=== PATIENT | male | born 1955 | race Caucasian/White ===

== ENCOUNTER 2017-01-26 00:20 | Observation (INO) | payer OTHER ==
[~2017-01-26] VITALS: Ht 172.7 cm; Wt 79.4 kg
[~2017-01-26 00:20] MED LIST: ALL DAY ALLERGY10 M3 PO; ASPIRIN81 M4 PO; AUGMENTIN 875-1 EACH PO; CIPRO 500MG TA500 MG IV; CIPRO 500MG TA500 MG PO; CLINDAMYCIN HC150 M1 PO; DULOXETINE HCL60 MG PO; DUONEB 3 MG/3 ML3 ML INH/SOL; ESCITALOPRAM10 MG PO; FLUTICASONE PRO16 GM NASB; FUROSEMIDE40 M1 PO; IPRATROPIUM BROM3 ML PO; PANTOPRAZOLE SO20 M1 PO; PERIOGARD473 ML PO; PREDNISONE10 MG PO; RX CHOICE FE15 MG/ML PO; SALINE NASAL SP30 ML NASB; SENNA8.6 M3 PO; TRAZODONE HCL100 M1 PO; ULTRAM50 M1 PO
--- NOTE | 2017-01-26 00:27 | ED GENERAL ADULT ---
See Addendum History of Present Illness General Chief Complaint: General Adult Stated Complaint: BIBA, DIFF SWALLOWING Source: patient, EMS, W10 Exam Limitations: clinical condition Vital Signs & Intake/Output Vital Signs & Intake/Output Vital Signs Date Time Temp Pulse Resp B/P B/P Pulse O2 O2 Flow FiO2 Mean Ox Delivery Rate 01/26 0022 97.3 79 20 109/53 92 Room Air Allergies Coded Allergies: tuberculin, purified protein deriva (UNKNOWN 04/27/16) Reconcile Medications Amoxicillin/Potassium Clav (Augmentin 875-125 Tablet) 875 MG-125 MG TABLET 1 TAB PO BID PNA Aspirin (Aspirin*) 81 MG TAB.CHEW 2 TAB PO DAILY heart (Reported) Cetirizine HCl (All Day Allergy) 10 MG CAPSULE 1 TAB PO AT BEDTIME ALLERGY ( Reported) Chlorhexidine Gluconate (Periogard) 0.12 % MOUTHWASH 15 ML PO BID MOUTHWASH ( Reported) Duloxetine HCl 60 MG CAPSULE.DR 1 CAP PO DAILY mental health (Reported) Fluticasone Propionate 50 MCG/ACTUATION SPRAY.SUSP 2 SPRAY NASB DAILY congestion (Reported) Furosemide 40 MG TABLET 1 TAB PO DAILY EDEMA (Reported) Pantoprazole Sodium 20 MG TABLET.DR 1 TAB PO DAILY gerd (Reported) Sennosides (Senna) 8.6 MG TABLET 2 TAB PO AT BEDTIME CONSTIPATION (Reported) Sodium Chloride (Saline Nasal [place]) 0.65 % SPRAY 1-2 SPRAY NASB TID mositure (Reported) Tramadol HCl (Ultram) 50 MG TABLET 1 TAB PO TIDPRN pain (Reported) Trazodone HCl 100 MG TABLET 2 TAB PO QPM bedtime (Reported) Triage Nurses Notes Reviewed? yes Onset: Gradual Duration: day(s): Timing: recent history Injury Environment: home Severity: mild Associated Symptoms: increased sputum. HPI: 61-year-old gentleman, history of head and neck cancer in remission, with a tracheostomy, presents with difficulty eating for the past 2 days. He shares that for the past 2 days it has been difficult for him to eat due to discomfort. He has had no nausea vomiting diarrhea chest pain or shortness of breath. He is otherwise well. Past History Travel History Traveled to [place] past 21 day No Medical History Any Pertinent Medical History? 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 No Review of Systems Review of Systems Constitutional: Reports: no symptoms. EENTM: Reports: no symptoms. Respiratory: Reports: no symptoms. Cardiovascular: Reports: no symptoms. GI: Reports: no symptoms. Genitourinary: Reports: no symptoms. Musculoskeletal: Reports: no symptoms. Skin: Reports: no symptoms. Neurological/Psychological: Reports: no symptoms. Hematologic/Endocrine: Reports: no symptoms. Immunologic/Allergic: Reports: no symptoms. All Other Systems: Reviewed and Negative Physical Exam Physical Exam General Appearance: well developed/nourished, no apparent distress Head: atraumatic, normal appearance Eyes: Bilateral: normal appearance, PERRL, EOMI. Ears, Nose, Throat: trach in place, no significant secretions. no stridor Neck: no stridor Respiratory: minimal rhonchi Cardiovascular: regular rate/rhythm Gastrointestinal: normal bowel sounds, soft, non-tender Back: normal inspection, normal range of motion Extremities: normal inspection, normal capillary refill, normal range of motion, no edema Neurologic/Psych: no motor/sensory deficits, awake, alert Skin: intact Core Measures ACS in differential dx? No CVA/TIA Diagnosis: No Severe Sepsis Present: No Septic Shock Present: No Progress Differential Diagnoses I considered the following diagnoses in my evaluation of the patient: dehydration, gerd, gastritis vs other. Plan of Care: Orders Procedure Date/time Status TROPONIN LEVEL 01/27 28 Complete COMPREHENSIVE METABOLIC PANEL 01/27 28 Complete CBC WITHOUT DIFFERENTIAL 01/27 28 Complete Laboratory Tests 01/26/17 0037: Anion Gap 13, Estimated GFR > 60, BUN/Creatinine Ratio 18.6, Glucose 94, Calcium 9.7, Total Bilirubin 1.1, AST 16 L, ALT 26, Alkaline Phosphatase 66, Troponin I < 0.01, Total Protein 6.9, Albumin 4.6, Globulin 2.3, Albumin/Globulin Ratio 2.0 , CBC w Diff NO MAN DIFF REQ, RBC 4.30 L, MCV 88.2, MCH 29.5, RDW 13.9, MPV 7.6 , Gran % 88.0 H, Lymphocytes % 4.2 L, Monocytes % 7.1, Eosinophils % 0.4, Basophils % 0.3, Absolute Granulocytes 8.8 H, Absolute Lymphocytes 0.4 L, Absolute Monocytes 0.7 H, Absolute Eosinophils 0, Absolute Basophils 0, PUBS MCHC 33.4 Diagnostic Imaging: Viewed by Me: Radiology Read. Discussed w/RAD: Radiology Read. CXR Impression: OPACITIES SUGGESTING EDEMA... FULL REPORT BELOW. Initial ED EKG: none Comments: 04/29/2016... CARDIAC ECHO WITH NORMAL EF. PATIENT: GAYLA TIDWELL PRESENT AGE: 61 PATIENT ACCOUNT NO: [id number] : 55 LOCATION: [facility] ORDERING PHYSICIAN: LAURA CARROLL MD SERVICE DATE: 01/26/17 EXAM TYPE: RAD - XRY-PORTABLE CHEST XRAY EXAMINATION: XR PORTABLE CHEST CLINICAL INFORMATION: Dyspnea COMPARISON: 04/27/2016 TECHNIQUE: Portable frontal view of the chest was obtained. FINDINGS: Tracheostomy tube is present with tip approximately 5 cm above the gaston. Lung volumes are symmetric. There are regions of opacity at the bilateral lung bases, decreased compared to prior. Fullness is also noted in the hilar regions bilaterally. No pneumothorax is seen. No definite pleural effusion. Cardiac size is at the upper limits of normal. 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 There are chronic appearing deformities in the bilateral shoulders. No acute fracture is seen. IMPRESSION: Bibasilar opacities and perihilar fullness, suggesting edema. DICTATED BY: EDI NOLAND MD DATE/TIME DICTATED:01/26/1748 REAL ESTATE SITE ANALYST:ZAYDA DATE/TIME TRANSCRIBED:01/26/1748 CONFIDENTIAL, DO NOT COPY WITHOUT APPROPRIATE AUTHORIZATION. <Electronically signed in Other Vendor System> SIGNED BY: EDI NOLAND MD 01/26/17 0055 Departure Departure Disposition: HOME OR SELF CARE Condition: Stable Clinical Impression Primary Impression: Difficulty swallowing Secondary Impressions: Bronchitis, Diastolic CHF, Dyspnea Referrals: KATHLEEN CROWLEY,MAGDA Dasilva (PCP/Family) Departure Forms: Customer Survey General Discharge Information Comments 01/26/17, 1:59AM.... Pt resting comfortably... 02 sat 93-4% ... cxr suggests "pulmonary edema" but upon review of prior ct scan and cxrs, it is more consistent with pneumonia. Echo from apr 2016 shows normal ef. Pt likely has bronchitis/ early pneumonia with mild component of volume overload. Pt safe for discharge to [facility] and will return if his symptoms worsen... will give 2 days of lasix bid, then go to qday (pt's standing dose). Pt also to receive 7 days of levaquin. Critical Care Note Critical Care Note Critical Care Time: non-applicable
--- NOTE | 2017-01-26 00:28 | NUR ---
PT BIBA FROM NURSING FACILITY WITH COMPLAINTS OF DIFFICULTY SWALLOWING X2 DAYS. PT WAS RECENTLY SEEN BY EARS, NOSE AND THROAT, BUT RESULTS ARE STILL PENDING PER EMS. PT ARRIVES ALERT AND ORIENTED. TRACHE NOTED. DR CARROLL AT BEDSIDE.
--- NOTE | 2017-01-26 00:39 | NUR ---
[facility]
--- NOTE | 2017-01-26 00:55 | RADIOLOGY REPORT ---
EXAMINATION: XR PORTABLE CHEST CLINICAL INFORMATION: Dyspnea COMPARISON: 04/27/2016 TECHNIQUE: Portable frontal view of the chest was obtained. FINDINGS: Tracheostomy tube is present with tip approximately 5 cm above the gaston. Lung volumes are symmetric. There are regions of opacity at the bilateral lung bases, decreased compared to prior. Fullness is also noted in the hilar regions bilaterally. No pneumothorax is seen. No definite pleural effusion. Cardiac size is at the upper limits of normal. 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 There are chronic appearing deformities in the bilateral shoulders. No acute fracture is seen. IMPRESSION: Bibasilar opacities and perihilar fullness, suggesting edema.
[2017-01-26 01:03] LABS: ABSOLUTE BASOPHIL COUNT 0 /CUMM (0.0-0.2); ABSOLUTE EOSINOPHIL COUNT 0 /CUMM (0.0-0.7); ABSOLUTE GRANULOCYTE CT 8.8 /CUMM (1.4-6.5); ABSOLUTE LYMPH COUNT 0.4 /CUMM (1.2-3.4); ABSOLUTE MONOCYTE COUNT 0.7 /CUMM (0.10-0.60); BASOPHIL % 0.3 % (0.0-2.0); EOSINOPHIL % 0.4 % (0-5); MEAN CORPUSCULAR HGB 29.5 PG (27.0-31.0); MEAN CORPUSCULAR HGB CONC 33.4 G/DL (33.0-37.0); MEAN CORPUSCULAR VOLUME 88.2 FL (80.0-94.0); MEAN PLATELET VOLUME 7.6 FL (7.4-10.4); PLATELET COUNT 229 /CUMM (130-400); RBC DISTRIBUTION WIDTH 13.9 % (11.5-14.5)
--- NOTE | 2017-01-26 01:59 | NUR ---
DR CARROLL AT BEDSIDE TO EXPLAIN RESULTS
--- NOTE | 2017-01-26 02:30 | NUR ---
PT AWAITING [facility].
--- NOTE | 2017-01-26 03:46 | NUR ---
[facility] HERE FOR TRANSPORT. PT BECOMING AGITATED AND STATES THAT HE DOES NOT WANT TO LEAVE. DR CARROLL AT BEDSIDE TO FURTHER ADDRESS PATIENT'S CONCERNS. PT STATES HE HAS NOT EATEN FOOD IN TWO DAYS BECAUSE IT IS TOO PAINFUL. DR CARROLL CONVERSING WITH HOSPITALIST ABOUT POSSIBLE ADMISSION.
--- NOTE | 2017-01-26 03:51 | NUR ---
PT AMBULATORY TO AND FROM RESTROOM WITH EVEN AND STEADY GAIT
[2017-01-26] MEDS ORDERED: DULOXETINE HCL30 MG PO (03:59)
[2017-01-26] MEDS ORDERED: IRON325 M2 (04:05)
--- NOTE | 2017-01-26 04:22 | NUR ---
HOUSESTAFF AT BEDSIDE FOR EVAL.
--- NOTE | 2017-01-26 04:46 | History & Physical ---
BERNIE CROWLEY,ERIC 01/26/17 0446: General Information and HPI MD Statement: I have seen and personally examined GAYLA TIDWELL and documented this H&P. The patient is a 61 year old M who presented with a patient stated chief complaint of [difficulty swallowing]. Exam Limitations: difficulty understanding the pt who is s/p tracheostomy, and speaks with an ectolarynx, pt was uncooperative during the history and physical exam History of Present Illness: pt is a 61 yo m with a pmh significant for diastolic CHF, subdural hematoma, cancer of head and neck, alcohol abuse, pancreatitis, ARDS, s/p tracheostomy, esophageal strictures. Brought into the ED from [facility] complaining of a 2 day history of an inability to swallowing. Pt is very difficult to understand when using his ectolarynx, and refused to use a pen and paper to communicate, as a result the history was taken via yes or no questions and he became uncooperative quickly. He denies odynophagia, cough, chest pain, fever, chills, SOB, nausea, or vomiting. 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 Cardiovascular: Denies: chest pain. Respiratory: Denies: cough, hemoptysis, short of breath. GI: Denies: abdominal pain, nausea, vomiting. Exam & Diagnostic Data Last 24 Hrs of Vital Signs/I&O Vital Signs Date Time Temp Pulse Resp B/P B/P Pulse O2 O2 Flow FiO2 Mean Ox Delivery Rate 01/26 0603 97.7 62 18 112/57 94 Room Air 01/26 0340 97.2 67 18 106/66 97 Room Air 01/26 0022 97.3 79 20 109/53 92 Room Air Intake & Output 01/26 0800 01/26 0000 01/25 1600 Intake Total 0 Output Total Balance 0 Intake, Oral 0 Patient 175 lb Weight Weight Estimated Measurement Method Physical Exam General Appearance Alert, No Acute Distress, unable to assess orientation due to inability to understand pt, pt was uncooperative throughout most of the exam Skin No Rashes, No Breakdown, pt has old appearing ecchymoses on knees b/l, and his L arm Skin Temp/Moisture Exam: Warm/Dry Sepsis Skin Exam (color): Normal for Ethnicity HEENT Atraumatic, PERRLA, EOMI, Mucous Membr. moist/pink, poor dentition, pt failed a bedside swallow evaluation. When given 3 oz of water to drink he would take small sips though a straw, attempt to swallow, and then spit the water back into the cup Neck Supple, No JVD, tracheostomy in place, no significant drainage present Lymphatic Cervical nl Cardiovascular Regular Rate, Normal S1, Normal S2, No Murmurs Lungs Clear to Auscultation, Normal Air Movement Abdomen Normal Bowel Sounds, Soft, No Tenderness, No Hepatospenomegaly, No Masses Neurological Cranial Nerves 3-12 NL Extremities No Cyanosis, No Edema, Normal Pulses Vascular Normal Pulses, Pulses Symmetrical Sepsis Peripheral Pulse Location: Dorsalis Pedis Sepsis Peripheral Pulse Exam: Normal Sepsis Cap Refill Exam: <2 Sec Diagnostic Data CXR Results IMPRESSION: Bibasilar opacities and perihilar fullness, suggesting edema. Assessment/Plan Assessment: pt is a 61 yo m with a pmh significant for diastolic CHF, subdural hematoma, cancer of head and neck, alcohol abuse, pancreatitis, ARDS, s/p tracheostomy, esophageal strictures. Pt c/o 2 day history difficulty swallowing. Pt is very difficult to understand when using his ectolarynx, and refused to use a pen and paper to communicate, as a result the history was taken via yes or no questions and he became uncooperative quickly. Of note, the ED doctor felt the pt was elligable for discharge but the pt refused to leave via ambulance back to his nursing facility. #dysphagia - Observation on the general medicine floor - NPO - formal swallow evaluation ordered - nutrition consult needed after swallow evaluation - aspiration precautions - serial vital monitoring - GI consultation - IVF #DVT prophylaxis - Lovenox #Code status - Full code As Ranked By This Provider Problem List: 1. Difficulty swallowing Core Measures/Miscellaneous Acute Coronary Syndrome ACS Diagnosis: No Cerebrovascular Accident CVA/TIA Diagnosis: No Congestive Heart Failure CHF Diagnosis: Yes Date of most recent Echo: 04/29/16 Last Known EF %: 60 NICHOLAS/ARB for EF <40%: Yes VTE (View Protocol) VTE Risk Factors: Age > 40, CHF or Resp failure [facility] d/t: No contraindications No VTE Pharm Prophylaxis d/t: No contraindications VTE Diagnosis: No VTE Type: NONE VTE Confirmed by (Test): NONE Sepsis (View Protocol) Severe Sepsis Present: No Septic Shock Septic Shock Present: No Miscellaneous Documentation Attending Case Discussed With: BRIANNE MEZA M.D Primary Care Physician: MAGDA WANG MD Patient sees these Specialists Dr. Gerardo Bustos Dobulavera Level of Patient Care: General Medicine Consults Needed: Consulting Specialty: Gastroenterology NICHELLE CADET MD 01/26/17 1164: General Information and HPI Allergies/Medications Home Med list Aspirin (Aspirin*) 81 MG TAB.CHEW 2 TAB PO DAILY heart (Reported) Cetirizine HCl (All Day Allergy) 10 MG CAPSULE 1 TAB PO AT BEDTIME ALLERGY ( Reported) Chlorhexidine Gluconate (Periogard) 0.12 % MOUTHWASH 15 ML PO BID MOUTHWASH ( Reported) Duloxetine HCl 60 MG CAPSULE.DR 1 CAP PO DAILY mental health (Reported) Duloxetine HCl 30 MG CAPSULE.DR 1 CAP PO DAILY DEPRESSION (Reported) Ferrous Sulfate (IRON) 325 MG (65 MG IRON) CAPSULE.ER 325 MG BLOOD HEALTH ( Reported) Fluticasone Propionate 50 MCG/ACTUATION SPRAY.SUSP 2 SPRAY NASB DAILY congestion (Reported) Furosemide 40 MG TABLET 1 TAB PO DAILY CHF (Reported) Pantoprazole Sodium 20 MG TABLET.DR 1 TAB PO DAILY gerd (Reported) Sennosides (Senna) 8.6 MG TABLET 2 TAB PO AT BEDTIME CONSTIPATION (Reported) Sodium Chloride (Saline Nasal [place]) 0.65 % SPRAY 1-2 SPRAY NASB TID mositure (Reported) Tramadol HCl (Ultram) 50 MG TABLET 1 TAB PO TIDPRN pain (Reported) Trazodone HCl 100 MG TABLET 2 TAB PO QPM bedtime (Reported) Exam & Diagnostic Data Last 24 Hrs of Vital Signs/I&O Vital Signs Date Time Temp Pulse Resp B/P B/P Pulse O2 O2 Flow FiO2 Mean Ox Delivery Rate 01/26 0340 97.2 67 18 106/66 97 Room Air 01/26 0022 97.3 79 20 109/53 92 Room Air Intake & Output 01/26 0800 01/26 0000 01/25 1600 Intake Total 0 Output Total Balance 0 Intake, Oral 0 Patient 79.379 kg Weight Weight Estimated Measurement Method Last 24 Hrs of Labs/Mao: Laboratory Tests 01/26/17 0037: Anion Gap 13, Estimated GFR > 60, BUN/Creatinine Ratio 18.6, Glucose 94, Calcium 9.7, Total Bilirubin 1.1, AST 16 L, ALT 26, Alkaline Phosphatase 66, Troponin I < 0.01, [id number]-A-[id number] Pept 156 H, Total Protein 6.9, Albumin 4.6, Globulin 2.3, Albumin/Globulin Ratio 2.0, CBC w Diff NO MAN DIFF REQ, RBC 4.30 L, MCV 88.2, MCH 29.5, RDW 13.9, MPV 7.6, Gran % 88.0 H, Lymphocytes % 4.2 L, Monocytes % 7.1, Eosinophils % 0.4, Basophils % 0.3, Absolute Granulocytes 8.8 H, Absolute Lymphocytes 0.4 L, Absolute Monocytes 0.7 H, Absolute Eosinophils 0, Absolute Basophils 0, PUBS MCHC 33.4 Resident Review Statement Resident Statement: examined this patient, discussed with intern brand, agreed with intern brand, reviewed EMR data (avail), discussed with nursing, reviewed images Other Findings: 61-year-old male with past medical history of head and neck cancer who follows Dr. Carrillo, history of respiratory failure, status post permanent tracheostomy, esophageal strictures, subdural hematoma, diastolic CHF, alcohol abuse, chronic pancreatitis, GERD, was sent from [facility] for complaints of dysphagia since past 2 days. Obtaining history from the patient is really difficult given his tracheostomy and voice assisting device, so much of the history was obtained from the past EMR, confirmed by the patient, with very little to add to. The patient confirmed that he has chronic dysphagia, which has worsened since past 2 days, unable to eat or drink properly. He denies history of coughing, choking, fever, chills, shortness of breath, chest pain, nausea, vomiting, sick contacts, travel. His vitals were stable and he came in to the ED, and he received a GI cocktail which seemed to relieve his symptoms mostly, if not fully. His chest x-ray showed bilateral congestion, thus he received a dose of Lasix and Augmentin as well. His physical examination in the emergency department is does not reveal an obvious cause for dysphagia. Oral cavity examination shows moist mucosa without any gross abnormality. His tracheostomy tube is fully functional. In the past, he has followed Dr. Carrillo for cancer, Kell Joshi MD for ENT, Huber Mackey MD for pulmonary (2015), Kim Koo MD before that in 2013, and Rhina Prather MD and Huber Alarcon MD for cardiology. Of note, his last echocardiogram was done on 04/29/[address] Prather, which was technically difficult examination, but showed minimal aortic stenosis, mild enlargement of the ascending aorta, minimal mitral insufficiency, mild concentric hypertrophy of left ventricle, minimal tricuspid insufficiency but RV systolic pressure could not be assessed. I could not find any ENT/cancer related reports in the EMR. Patient initially was deemed fit to be discharged by the ED physician, other patient insisted that his dysphagia/symptoms were not under control and he was placed in the observation status for the following issues: #Worsening dysphagia Patient mentions that his dysphagia has worsened, although minimally relieved by GI cocktail that he received in the emergency department, and that he still has difficulty swallowing solids as well as liquids. He previously had regular thin liquid as noted from the [facility] W 10 form. This warrants further evaluation, and observation for progression of his symptoms. * Patient to be observed in general medical floor * Regular vitals monitoring * Watch out for aspiration risks * GI consultation in the morning * Bedside swallow screening has been done with 3 ounces of water, and the patient failed the screening test. Thus dietary orders is NPO for now. * A formal swallow evaluation has been ordered, to guide the proper dietary instructions * IV fluids [id number] to continue for now, pending swallow eval. #If the patient passes bedside swallow screening, home medications will be continued. #Diet: NPO for now #DVT ppx: Lovenox #Code status: Full code per [facility], confirmed with patient SUSANA CROWLEY,BRIANNE 01/26/17 1646: Attending MD Review Statement Attending Statement Attending MD Statement: examined this patient, discuss w/resident/PA/MECHANICAL ENGINEERING LECTURER, agreed w/resident/PA/MECHANICAL ENGINEERING LECTURER, reviewed EMR data (avail), discussed with nursing, amended to note Attending Assessment/Plan: Patient seen and examined. Resting comfortably not in any acute distress. Presented due to complaints of difficulty swallowing going on for the past 3 days. He required esophageal dilation earlier this year for similar but less severe symptoms. He has been evaluated by the GI service today and the plans are for repeat endoscopy tomorrow with possible dilatation if needed. He is currently resting with no acute complaints. On examination he has no jugular venous distention. Has fair entry bilaterally and lungs sounds are clear to auscultation. Abdomen soft and nontender and he has no peripheral edema. Recommendations: -Keep nothing by mouth. -Follow-up recommendations of the swallow evaluation. -Hydrate with D5 half and is at some 5 mL an hour while nothing by mouth. -He doesn't show any overt evidence of volume overload for now. We'll hold off further diuresis and monitor respiratory status closely. -His blood pressure has been on the lower side since admission. He is not on any antihypertensive medications other than the Lasix he received the emergency room. Recommend close monitoring of his blood pressure through the course of the day. -Observe overnight on Observation Level of Care pending swallow evaluation and EGD
--- NOTE | 2017-01-26 05:09 | NUR ---
MD STEWARD AT BEDSIDE FOR EVAL.
--- NOTE | 2017-01-26 05:59 | NUR ---
PT TO ROOM [id number]
--- NOTE | 2017-01-26 06:00 | NUR ---
REPORT GIVEN TO OBI PAK ON GEN MED.
[2017-01-26 07:19] VITALS: BP 98/60
--- NOTE | 2017-01-26 09:42 | PN- Housestaff ---
See Addendum Subjective Follow-up For: dysphagia Subjective: No overnight events. He has difficulty communicating as he has permanent trach. Having difficulty swallowing solids and liqudis. Complaining of being hungry as he is NPO for swallow eval. No other issues. Review of Systems Constitutional: Reports: no symptoms. EENTM: Reports: no symptoms. Cardiovascular: Reports: no symptoms. Respiratory: Reports: no symptoms. Gastrointestinal: Reports: see HPI. Genitourinary: Reports: no symptoms. Musculoskeletal: Reports: no symptoms. Skin: Reports: no symptoms. Neurological/Psychological: Reports: no symptoms. Hematologic/Endocrine: Reports: no symptoms. Immunologic/Allergic: Reports: no symptoms. Objective Last 24 Hrs of Vital Signs/I&O Vital Signs Date Time Temp Pulse Resp B/P B/P Pulse O2 O2 Flow FiO2 Mean Ox Delivery Rate 01/26 0719 98.3 66 18 98/60 91 01/26 0603 97.7 62 18 112/57 94 Room Air 01/26 0340 97.2 67 18 106/66 97 Room Air 01/26 0022 97.3 79 20 109/53 92 Room Air Intake & Output 01/26 1600 01/26 0800 01/26 0000 Intake Total 0 Output Total Balance 0 Intake, Oral 0 Patient 175 lb Weight Weight Estimated Measurement Method Physical Exam General Appearance: Alert, Cooperative, No Acute Distress Neck: Tracheostomy Cardiovascular: Regular Rate, Normal S1, Normal S2 Lungs: Clear to Auscultation Abdomen: Normal Bowel Sounds, Soft, No Tenderness Extremities: No Edema Assessment/Plan Assessment: Mr. Epperson is a 61 yo m with a pmh significant for diastolic CHF, subdural hematoma, cancer of head and neck, alcohol abuse, pancreatitis, ARDS, s/p tracheostomy, esophageal strictures complaining of difficulty swallowing. On presentation, vital signs were T 97.3, HR 79, RR 20, BP 109/53, satting 90% on room air. Laboratories were significant for hemoglobin 12.7, white blood cell count 10.0, electrolytes were normal. Chest x-ray showed bibasilar opacities, suggesting edema. #dysphagia: Difficulty swallowing both liquids and solids. He was previously on a thin liquid diet but is unclear why this has acutely worsened. He does have history of esophageal strictures and alcohol abuse. - Observation on the general medicine floor - NPO pending swallow evaluation - nutrition consult needed after swallow evaluation - aspiration precautions - serial vital monitoring -Fluids while nothing by mouth -Consider GI consult. #DVT prophylaxis - Lovenox #Code status - Full code Problem List: 1. Difficulty swallowing Pain Ratin Pain Location: no pain Pain Goal: Remain pain free Pain Plan: see a/p Tomorrow's Labs & Rationales: bep Consulting Request: Consulting Specialty: Gastroenterology
--- NOTE | 2017-01-26 11:38 | Cons- Gastroenterology ---
General Information and HPI Consulting Request Date of Consult: 01/26/17 Requested By: BRIANNE MEZA M.D Reason for Consult: Dysphagia Source of Information: patient, old records Exam Limitations: physical impairment History of Present Illness: Mr. Freeman is a 61 year old male with a history of head and neck cancer s/p XRT who presented to yesterday from [facility] with complaints of an inability to swallow liquids or solids for the previous 2 days. He underwent an EGD this past August for complaints of dysphagia at that time and this did show an upper esophageal stricture which was essentially dilated by the scope, but additional balloon or savory dilation was not performed. He is difficult to get a clear history from, but on asking him he does seem to indicate that was beneficial for his symptoms them. It does seem, however, that the current symptoms of dysphagia are more severe than what he had in August. He is without any complaints of abdominal pain nor does he complain of heartburn or vomiting when asked. He also denies any brbpr or melena. He apparently failed a bedside swallow evaluation yesterday and has been kept NPO since then. He has otherwise been afebrile and hemodynamically stable. Allergies/Medications Allergies: Coded Allergies: tuberculin, purified protein deriva (UNKNOWN 04/27/16) Home Med List: Aspirin (Aspirin*) 81 MG TAB.CHEW 2 TAB PO DAILY heart (Reported) Cetirizine HCl (All Day Allergy) 10 MG CAPSULE 1 TAB PO AT BEDTIME ALLERGY ( Reported) Chlorhexidine Gluconate (Periogard) 0.12 % MOUTHWASH 15 ML PO BID MOUTHWASH ( Reported) Duloxetine HCl 30 MG CAPSULE.DR 1 CAP PO DAILY DEPRESSION (Reported) Ferrous Sulfate (IRON) 325 MG (65 MG IRON) CAPSULE.ER 325 MG BLOOD HEALTH ( Reported) Fluticasone Propionate 50 MCG/ACTUATION SPRAY.SUSP 2 SPRAY NASB DAILY congestion (Reported) Furosemide 40 MG TABLET 1 TAB PO DAILY CHF (Reported) Pantoprazole Sodium 20 MG TABLET.DR 1 TAB PO DAILY gerd (Reported) Sennosides (Senna) 8.6 MG TABLET 2 TAB PO AT BEDTIME CONSTIPATION (Reported) Sodium Chloride (Saline Nasal [place]) 0.65 % SPRAY 1-2 SPRAY NASB TID mositure (Reported) Tramadol HCl (Ultram) 50 MG TABLET 1 TAB PO TIDPRN pain (Reported) Trazodone HCl 100 MG TABLET 2 TAB PO QPM bedtime (Reported) Current Medications: Current Medications Sig/Juan Manuel Start time Last Medication Dose Route Stop Time Status Admin Acetaminophen 1,000 MG Q6P PRN 01/26 0630 AC IV Amoxicillin/ 0 .STK-MED ONE 01/26 0435 DC Clavulanate Potassium PO Amoxicillin/ 1,000 MG ONCE ONE 01/26 0415 DC Clavulanate Potassium PO 01/26 0416 Dextrose/Sodium 1,000 ML Q13H 01/26 0715 AC 01/26 Chloride IV 1000 Enoxaparin Sodium 40 MG DAILY 01/26 1000 AC 01/26 SC 1000 Famotidine 20 MG BID 01/26 1000 AC 01/26 IV 1000 Famotidine 0 .STK-MED ONE 01/26 0205 DC IV Famotidine 20 MG ONCE ONE 01/26 0030 DC IV 01/26 0031 Furosemide 0 .STK-MED ONE 01/26 0434 DC PO Furosemide 40 MG ONE ONE 01/26 0415 DC PO 01/26 0416 Sodium Chloride 1 SPRAY TID PRN 01/26 1000 AC SELENA Sodium Chloride 1,000 ML Q13H 01/26 0615 DC IV Sodium Chloride 1,000 ML BOLUS ONE 01/26 0030 CAN IV 01/26 0129 Tramadol HCl 50 MG Q4 PRN 01/26 0630 AC PO Past History Travel History Traveled to [place] past 21 day No Medical History Neurological: SUBDURAL Cardiovascular: CHF Respiratory: pneumonia Gastrointestinal: GERD, pancreatitis, upper esophageal stricture due to radiation... diagnosed aug 2016 Blood Disorders: anemia Cancer(s): HEAD AND NECK Surgical History Surgical History: TRACHEOSTOMY, GASTROSTOMY Family History Relations & Conditions If Any: Relation not specified for: No significant family history Psychosocial History Services at Home: None Smoking Status: Never Smoked Review of Systems Review of Systems: Limited secondary to pts tracheostomy and generized uncoorperativeness Review of Systems Constitutional: Denies: fever, malaise, unexplained weight loss. EENTM: Denies: no symptoms. Cardiovascular: Denies: chest pain. Respiratory: Reports: cough, short of breath, sputum production. GI: Reports: see HPI. Genitourinary: Denies: no symptoms. Musculoskeletal: Reports: joint pain, joint swelling. Skin: Denies: no symptoms. Neurological/Psychological: Denies: no symptoms. Hematologic/Endocrine: Denies: no symptoms. Immunologic/Allergic: Denies: no symptoms. All Other Systems: Reviewed and Negative Exam & Diagnostic Data Vital Signs and I&O Vital Signs Date Time Temp Pulse Resp B/P B/P Pulse O2 O2 Flow FiO2 Mean Ox Delivery Rate 01/26 719 98.3 66 18 98/60 91 01/26 0603 97.7 62 18 112/57 94 Room Air 01/26 0340 97.2 67 18 106/66 97 Room Air 01/26 0022 97.3 79 20 109/53 92 Room Air Intake & Output 01/26 1600 01/26 0400 01/25 1600 01/25 0400 01/24 0400 Intake Total 0 Output Total Balance 0 Intake, Oral 0 Patient 175 lb 175 lb Weight Weight Estimated Measurement Method Physical Exam General Appearance: well developed/nourished, no apparent distress Head: atraumatic Eyes: Bilateral: normal appearance. Neck: tracheostomy with clear sputum Respiratory: chest non-tender, no respiratory distress, decreased breath sounds Cardiovascular: regular rate/rhythm Gastrointestinal: normal bowel sounds, soft, non-tender, no organomegaly Rectal: deferred Back: normal inspection, normal range of motion Extremities: normal inspection, no edema Results Pertinent Lab Results: Laboratory Tests 01/26 01/26 0736 0037 Chemistry Sodium (137 - 145 mmol/L) 140 140 Potassium (3.5 - 5.1 mmol/L) 4.1 4.1 Chloride (98 - 107 mmol/L) 101 101 Carbon Dioxide (22 - 30 mmol/L) 27 26 Anion Gap (5 - 16) 12 13 BUN (9 - 20 mg/dL) 15 13 Creatinine (0.7 - 1.2 mg/dL) 0.6 L 0.7 Estimated GFR (>60 ml/min) > 60 > 60 BUN/Creatinine Ratio (7 - 25 %) 25.0 18.6 Glucose (65 - 99 mg/dL) 94 Calcium (8.4 - 10.2 mg/dL) 9.7 Total Bilirubin (0.2 - 1.3 mg/dL) 1.1 AST (17 - 59 U/L) 16 L ALT (21 - 72 U/L) 26 Alkaline Phosphatase (< 127 U/L) 66 Troponin I (<0.11 ng/ml) < 0.01 [id number] Pept (<125 pg/mL) 156 H Total Protein (6.3 - 8.2 g/dL) 6.9 Albumin (3.5 - 5.0 g/dL) 4.6 Globulin (1.9 - 4.2 gm/dL) 2.3 Albumin/Globulin Ratio (1.1 - 2.2 %) 2.0 Hematology CBC w Diff NO MAN DIFF REQ WBC (4.8 - 10.8 /CUMM) 10.0 RBC (4.70 - 6.10 /CUMM) 4.30 L Hgb (14.0 - 18.0 G/DL) 12.7 L Hct (42 - 52 %) 38.0 L MCV (80.0 - 94.0 FL) 88.2 MCH (27.0 - 31.0 PG) 29.5 RDW (11.5 - 14.5 %) 13.9 Plt Count (130 - 400 /CUMM) 229 MPV (7.4 - 10.4 FL) 7.6 Gran % (42.2 - 75.2 %) 88.0 H Lymphocytes % (20.5 - 51.1 %) 4.2 L Monocytes % (1.7 - 9.3 %) 7.1 Eosinophils % (0 - 5 %) 0.4 Basophils % (0.0 - 2.0 %) 0.3 Absolute Granulocytes (1.4 - 6.5 /CUMM) 8.8 H Absolute Lymphocytes (1.2 - 3.4 /CUMM) 0.4 L Absolute Monocytes (0.10 - 0.60 /CUMM) 0.7 H Absolute Eosinophils (0.0 - 0.7 /CUMM) 0 Absolute Basophils (0.0 - 0.2 /CUMM) 0 PUBS MCHC (33.0 - 37.0 G/DL) 33.4 Imaging/Other Studies: Findings: Esophagus: There was some resistance to passing the upper endoscope through the upper esophagus secondary to a benign esophageal stricture. There were no esophageal masses and with gentle pressure the scope was able to traverse the stricture essentially dilating it. No further dilation was attempted and once the scope traversed the stricture the resistance was no longer appreciated. The remainder of the esophageal mucosa was grossly normal in appearance and there was a normal-appearing Z line at 40 cm the incisors without any erosions, ulcrs or masses appreciated. Stomach: The gastric mucosa was grossly normal in appearance. There were no ulcers, erosions, or masses appreciated. Distention and peristalsis of the stomach appeared normal. Retroflexed views were normal and did not reveal significant hiatal hernia. Duodenum: The duodenal bulb, sweep, and folds were grossly normal in appearance. Impression: 1. Benign upper esophageal radiation stricture status post dilation from the upper endoscope, but no attempts at balloon dilation were made. Assessment/Plan Assessment/Recommendations: Assessment: Mr. Freeman is a 61 year old male with a history of head and neck cancer s/p chemo and XRT who has had progressive dysphagia over the past few weeks likely secondary to a recurrence of his upper esophageal stricture that was previously dilated by the upper endoscope this past August when he had similar symptoms. As no additional dilation was performed on that EGD the recurrence is not unsurprising and I will plan to perform a repeat EGD tomorrow to further evaluate and likely dilate the stricture. Recommendations: 1. Agree with speech and swallow evaluation 2. Diet as per speech and swallow evaluation and NPO after midnight for a diagnostic/therapeutic EGD tomorrow I will continue to follow this patient and make further recommendations based on his clinical course and the results of the EGD tomorrow. Problem List: 1. Difficulty swallowing Copies To: ROWDY CROWLEY,MARIA DE JESUS WYATT MD,CARRI Yu. Consult Acknowledgment - Thank you for your consult request.
[2017-01-26 14:52] VITALS: BP 100/60
[2017-01-26 18:01] VITALS: BP 112/70
[2017-01-26 22:48] VITALS: BP 106/56
[2017-01-27 04:40] VITALS: BP 102/62
[2017-01-27 07:39] VITALS: BP 102/60
--- NOTE | 2017-01-27 08:03 | PN- Housestaff ---
See Addendum Subjective Follow-up For: dysphagia Subjective: No overnight events. History limited by patient's inability to speak s/p tracheostomy. He is still having dysphagia, now spitting up into a cup. No other complaints, ready for endoscopy today. Review of Systems Constitutional: Reports: no symptoms. EENTM: Reports: no symptoms. Cardiovascular: Reports: no symptoms. Respiratory: Reports: no symptoms. Gastrointestinal: Reports: see HPI. Genitourinary: Reports: no symptoms. Musculoskeletal: Reports: no symptoms. Skin: Reports: no symptoms. Neurological/Psychological: Reports: no symptoms. Hematologic/Endocrine: Reports: no symptoms. Immunologic/Allergic: Reports: no symptoms. Objective Last 24 Hrs of Vital Signs/I&O Vital Signs Date Time Temp Pulse Resp B/P B/P Pulse O2 O2 Flow FiO2 Mean Ox Delivery Rate 01/27 0739 99.1 56 20 102/60 92 01/27 0440 59 102/62 92 01/27 0000 Room Air 01/26 2248 98.9 55 20 106/56 94 01/26 1801 112/70 01/26 1600 Room Air 01/26 1452 98.9 70 18 100/60 95 Room Air Intake & Output 01/27 1600 01/27 0800 01/27 0000 Intake Total 800 700 Output Total Balance 800 700 Intake, IV 800 700 Physical Exam General Appearance: Alert, Oriented X3, Cooperative, No Acute Distress Cardiovascular: Regular Rate, Normal S1, Normal S2 Lungs: tracheostomy, mild wheezing Abdomen: Normal Bowel Sounds, Soft, No Tenderness Extremities: No Edema Current Medications: Current Medications Sig/Juan Manuel Start time Last Medication Dose Route Stop Time Status Admin Acetaminophen 1,000 MG Q6P PRN 01/26 0630 AC IV Dextrose/Sodium 1,000 ML Q10H 01/26 1830 AC 01/26 Chloride IV 2208 Dextrose/Sodium 1,000 ML Q13H 01/26 0715 DC 01/26 Chloride IV 1000 Enoxaparin Sodium 40 MG DAILY 01/26 1000 AC 01/26 SC 1000 Famotidine 20 MG BID 01/26 1000 AC 01/26 IV 2208 Sodium Chloride 1 SPRAY TID PRN 01/26 1000 AC SELENA Tramadol HCl 50 MG Q4 PRN 01/26 0630 AC PO Last 24 Hrs of Lab/Mao Results Last 24 Hrs of Labs/Mics: Laboratory Tests 01/27/17 0737: Sodium Pending, Potassium Pending, Chloride Pending, Carbon Dioxide Pending, Anion Gap Pending, BUN Pending, Creatinine Pending, BUN/Creatinine Ratio Pending Assessment/Plan Assessment: Mr. Epperson is a 61 yo m with a pmh significant for diastolic CHF, subdural hematoma, cancer of head and neck, alcohol abuse, pancreatitis, ARDS, s/p tracheostomy, esophageal strictures complaining of difficulty swallowing. On presentation, vital signs were T 97.3, HR 79, RR 20, BP 109/53, satting 90% on room air. Laboratories were significant for hemoglobin 12.7, white blood cell count 10.0, electrolytes were normal. Chest x-ray showed bibasilar opacities, suggesting edema. #dysphagia: Difficulty swallowing both liquids and solids. He was previously on a thin liquid diet but is unclear why this has acutely worsened. He does have history of esophageal strictures and alcohol abuse. GI will do an anoscopy today. He felt swallow evaluation yesterday because he cannot see. He is now spitting up as well. - Observation on the general medicine floor - NPO - aspiration precautions - serial vital monitoring -Fluids while nothing by mouth: D5 1/2NS 100 mL/hr -Follow up GI recommendations #Hypotension: His blood pressures were soft yesterday, 90s systolic. They've been better today, 102/60 this morning. -Continue to monitor #DVT prophylaxis - Lovenox #Code status - Full code Problem List: 1. Difficulty swallowing Pain Ratin Pain Location: no pain Pain Goal: Remain pain free Pain Plan: see a/p Tomorrow's Labs & Rationales: bep, cbc Consulting Request: Consulting Specialty: Gastroenterology
--- NOTE | 2017-01-27 13:15 | Proc Note Endoscopy ---
Endoscopy Procedure Medical History: unchanged (see meditech consult) Mental Status: alert/oriented Heart/Lung Eval Prior to Sedation: within normal limits Candidate for Sedation? Yes Procedure Date: 01/27/17 Procedure Type: EGD with dilation Machine Oiler: Vladislav Serna MD ASA Classification: III Indications: Dysphagia. Instrument: diagnostic gastroscope Meds Received: MAC Patient's Tolerance: good Complications: none Extent Reached: second part of duodenum Procedure: After getting written informed consent the patient was placed in the left lateral decubitus position with pulse oximetry, cardiac monitoring, and supplemental oxygen given. A bite block was inserted and IV sedation was given until the desired effect was achieved. A high definition upper Olympus endoscope was then inserted into the mouth and advanced to the upper esophagus at which point a tight stricture was encountered at the scope was not able to traverse. A [id number] CRE balloon was then passed traversing the stricture and was inflated to 10 mm and was held in position for 60 seconds. The balloon was then taken down and the upper endoscope was then able to traverse the stricture albeit still with some resistance. After dilation the stricture was re-examined and the narrowed area was more patent and as there was a significant amount of heme and a superficial tear was appreciated further dilation was not attempted. After dilation was performed the scope was then able to be passed to the second portion of the duodenum with little difficulty. Retroflexed views and photodocumentation was obtained. Findings: Esophagus: The upper esophageal mucosa was grossly normal in appearance. As stated in the procedure section of this report there was a tight stricture at 15 cm from the incisors that the scope was initially not able to traverse. The stricture was then balloon dilated to 10 mm with subsequent improvement in the stricture so that the scope was able to traverse it. The remainder of the esophageal mucosa was grossly normal appearance and there was a normal appearing Z line at 40 cm from the incisors. Stomach: The gastric mucosa was grossly normal appearance. There were no ulcers , erosions, or masses appreciated. Distention and peristalsis of stomach appeared normal. Retroflexed views were normal did not reveal significant hiatal hernia. Duodenum: The duodenal bulb was mildly erythematous with a few scattered erosions, but there were no ulcers or masses appreciated. The duodenal sweep and folds were grossly normal in appearance. Impression: 1. Benign upper esophageal radiation stricture status post balloon dilation to 10 mm with subsequent improvement in the narrowed area so that the scope was able to traverse it. 2. Erosive duodenitis. Recommendations: 1. Keep on a soft diet for now and then advance as tolerated in the morning. 2. He should be maintained on oral PPI. 3. If there are no other active issues and his diet is able to be advanced would recommend [facility] and have him follow-up in 1-2 weeks to reassess his symptoms and give consideration for further dilation if he continues to be symptomatic. CC: ROWDY CROWLEY,KEENAN; YOSELIN CROWLEY,CARRI Dasilva
--- NOTE | 2017-01-27 13:58 | NUR ---
Speech therapy: Chart reviewed. Pt is currently having EGD. Will followup results and evaluate swallowing function 01/28.
[2017-01-27 14:59] VITALS: BP 110/60
--- NOTE | 2017-01-27 16:21 | Discharge Summary ---
Visit Information Visit Dates Admission Date: 01/26/17 Discharge Date: 01/28/2017: Hospital Course Course Attending Physician: JOEL CROWLEY,KAY West Primary Care Physician: KATHLEEN CROWLEY,MAGDA Dasilva Consulting Request: Consulting Specialty: Gastroenterology Hospital Course: Mr Epperson is a 61-year-old gentleman with a PMH of diastolic HF LVEF 55-60% on echocardiogram on 04/2016, history of respiratory failure S/P permanent tracheostomy, esophageal strictures, subdural hematoma, head and neck cancer followed by Dr. Stock, EtOH dependence, pancreatitis, parts, Patient presented from [facility] with complaints of a 2 day duration of difficulty swallowing both solids and liquids, denied any choking, coughing, nausea, vomiting, fevers, chills, chest pain. He did undergo an EGD in August 2016 for similar complaints which did show upper esophageal strictures that were essentially dilated by scope but additional balloon or savory dilation was not performed at the time. Providers involved in his care on previous admissions include Dr. Carrillo for cancer, Kell Joshi MD for ENT, Huber Mackey MD for pulmonary (2015), Kim Koo MD before that in 2013, and Rhina Prather MD and Huber Hughes MD for cardiology. VS on admission: BP 109/53, HR 79, RR 20, SPO2 92% on RA, T 97.3 Pertinent physical exam findings: Patient was not in any acute distress, difficulty understanding his in the context of incomprehensible words from ectolarynx. Because membranes pink and moist, poor dentition. Attempts at bedside swallow with 3 ounces of water resulted in him spitting them back up. Tracheostomy in place with no significant drainage RRR, normal S1/S2. Lungs CTA BL. Normal bowel sounds with no tenderness to palpation. No edema bilateral lower extremities. Labs on admission: WBC 10.0, H&H 12.7/30.0, platelets 229K 140, potassium 4.1, chloride 101, bicarbonate 26, BUN/CR 13/0.7 On presentation in the ED the patient received a GI cocktail which did provide noticeable relief in his dysphagia. He did fail bedside swallow evaluation and reassess NPO CXR: Bibasilar opacities and perihilar fullness, suggesting edema. The patient was admitted to general medicine floor for management of the following problems: 1. Dysphagia 2. Hypotension Hospital course: 1. Dysphagia * 01/23/2017 the patient underwent an upper endoscopy with dilation * Impression: Benign upper esophageal radiation stricture status post balloon dilation to 10 mm with subsequent improvement in the narrowed area so that the scope was able to traverse it.Erosive duodenitis. * The patient was started on soft diet and advanced, maintained on oral PPI * Post discharge recommendations are to follow-up with his director patient financial services Dr. Serna if symptoms recur/worsen at which point further dilation would be considered\ * Mechanical soft and regular diet 2. Hypotension * Throughout the hospital course systolic blood pressures range between the 90s to 100s with no evidence of tachycardia. Gentle hydration with D5 half NS. * BP remained stable the rest of the hospital course Allergies: Coded Allergies: tuberculin, purified protein deriva (UNKNOWN 04/27/16) Disposition Summary Disposition Principal Diagnosis: Dysphagia due to Benign upper esophageal radiation stricture status post balloon dilation to 10 mm with subsequent improvement in the narrowed area Additional Diagnosis: Hypotension Discharge Disposition: SNF Discharge Instructions General Discharge Information Code Status: Full Code Patient's Diet: Regular diet WITH MECHANICAL SOFT Patient's Activity: As tolerated Follow-Up Instructions/Appts: Please take all medications as directed. Patient to follow-up with his director patient financial services Dr. Serna if symptoms recur/ worsen to consider repeat dilation Medications at Discharge Discharge Medications: Stop taking the following medications: Duloxetine HCl (Duloxetine HCl) 60 MG CAPSULE. ORAL DAILY Days = 30 Amoxicillin/Potassium Clav (Augmentin 875-125 Tablet) 875 MG-125 MG TABLET ORAL TWICE DAILY Days = 6 Continue taking these medications: Furosemide (Furosemide) 40 MG TABLET 1 Tablet ORAL DAILY Comments: NOT GIVEN IN HOSPITAL Trazodone HCl (Trazodone HCl) 100 MG TABLET 2 Tablet ORAL Every night Days = 30 Comments: given 04/30/16 @ 214 Fluticasone Propionate (Fluticasone Propionate) 50 MCG/ACTUATION SPRAY.SUSP 2 [place] Both sides of nose DAILY Qty = 30 Comments: NOT GIVEN IN HOSPITAL Pantoprazole Sodium (Pantoprazole Sodium) 20 MG TABLET.DR 1 Tablet ORAL DAILY Days = 30 Comments: not given Sodium Chloride (Saline Nasal [place]) 0.65 % SPRAY 1-2 [place] Both sides of nose THREE TIMES DAILY Days = 30 Comments: LAST GIVEN 01/17/17 @ 1218 Tramadol HCl (Ultram) 50 MG TABLET 1 Tablet ORAL THREE TIMES A DAY NEEDED Days = 30 Comments: not given Aspirin (Aspirin*) 81 MG TAB.CHEW 2 Tablet ORAL DAILY Days = 30 Comments: NOT GIVEN IN HOSPITAL Cetirizine HCl (All Day Allergy) 10 MG CAPSULE 1 Tablet ORAL AT BEDTIME Days = 30 Comments: NOT GIVEN IN HOSPITAL Chlorhexidine Gluconate (Periogard) 0.12 % MOUTHWASH 15 Milliliters ORAL TWICE DAILY Days = 30 Comments: NOT GIVEN IN HOSPITAL Sennosides (Senna) 8.6 MG TABLET 2 Tablet ORAL AT BEDTIME Days = 30 Comments: NOT GIVEN Duloxetine HCl (Duloxetine HCl) 30 MG CAPSULE.DR 1 Capsule ORAL DAILY Comments: NOT GIVEN IN HOSPITAL Ferrous Sulfate (IRON) 325 MG (65 MG IRON) CAPSULE.ER 325 Milligram Comments: NOT GIVEN IN HOSPITAL Copies To: SAMMIE CROWLEY,Kim ASHLEY; QUIN CROWLEY,HUBER Jacobs; YOSELIN CROWLEY,CARRI Dasilva; KRYSTAL CROWLEY,Kevin CARRIZALES; NEVAEH CROWLEY,ЕЛЕНА HUGHES MD PhD,HUBER West Attending MD Review Statement Documenting Attending: JOEL CROWLEY,KAY West Other Findings: please see my separate attending note for more details.
[2017-01-27 22:35] VITALS: BP 118/60
--- NOTE | 2017-01-28 05:54 | NUR ---
LATE ENTRY PATIENT O2 SAT 89% . PATIENT DENIES ANY DISCOMFORT. NO DISTRESS NOTED. RESPIRATORY WAS PAGED AND MD WAS MADE AWARE. TRACH MASK WAS PLACED AT 31% AND OXYGEN AT 4L. PATIENT'S O2 SAT IMPROVED TO 93%. PATIENT RESTING COMFORTABLY IN BED. WILL CONTINUE TO MONITOR.
[2017-01-28 06:58] VITALS: BP 104/60
--- NOTE | 2017-01-28 08:12 | NUR ---
LATE ENTRY PATIENT'S LBM 01/23/17. +BS, ABD SOFT NON TENDER. DENIES ABD PAIN. NO DISTRESS NOTED. PATIENT ALSO HAS BEEN NPO. PATIENT REFUSED LAXATIVES. MD ERIC GIBBS WAS MADE AWARE.
--- NOTE | 2017-01-28 08:13 | PN- Housestaff ---
See Addendum Subjective Follow-up For: Dysphagia Subjective: He was placed on 4L oxygen last night for hypoxia to 87%. History limited by trachestomy, but no acute complaints evident. Review of Systems Constitutional: Reports: no symptoms. EENTM: Reports: no symptoms. Cardiovascular: Reports: no symptoms. Respiratory: Reports: no symptoms. Gastrointestinal: Reports: no symptoms. Genitourinary: Reports: no symptoms. Musculoskeletal: Reports: no symptoms. Skin: Reports: no symptoms. Neurological/Psychological: Reports: no symptoms. Hematologic/Endocrine: Reports: no symptoms. Immunologic/Allergic: Reports: no symptoms. Objective Last 24 Hrs of Vital Signs/I&O Vital Signs Date Time Temp Pulse Resp B/P B/P Pulse O2 O2 Flow FiO2 Mean Ox Delivery Rate 01/28 0658 99.1 63 20 104/60 95 Trach Mask 01/28 0000 93 Trach Mask 4.0L 01/27 2235 99.4 79 20 118/60 87 01/27 1459 98.1 51 20 110/60 95 Room Air Intake & Output 01/28 1600 01/28 0800 01/28 0000 Intake Total 800 300 Output Total Balance 800 300 Intake, IV 800 300 Physical Exam General Appearance: Alert, Oriented X3, Cooperative, No Acute Distress Cardiovascular: Regular Rate, Normal S1, Normal S2, No Murmurs Lungs: mild wheezing, tracheostomy Abdomen: Normal Bowel Sounds, Soft, No Tenderness Extremities: No Edema Assessment/Plan Assessment: Mr. Epperson is a 61 yo m with a pmh significant for diastolic CHF, subdural hematoma, cancer of head and neck, alcohol abuse, pancreatitis, ARDS, s/p tracheostomy, esophageal strictures complaining of difficulty swallowing. #Benign esophageal radiation stricture: GI did an endoscopy yesterday. It showed benign upper esophageal radiation stricture status post balloon dilation to 10 mm with subsequent improvement in the narrowed area. He also has erosive duodenitis. -Soft diet, advance as tolerated -Omeprazole - aspiration precautions - serial vital monitoring -Follow up GI recommendations: He can follow up as outpatient for symptoms and potential further dilation. #Hypoxia: Last night his oxygen saturation fell to 87% and he was placed on 4 L of oxygen. It is unclear why at this time, history is difficult to obtain given his communication difficulties. He is now satting 95% with no distress or respiratory symptoms. We will wean him today if possible. -EKG -Chest x-ray, PA and lateral #Hypotension: His blood pressures were in the 90s on admission but have been good since -Continue to monitor #DVT prophylaxis - Lovenox #Code status - Full code Problem List: 1. Benign esophageal stricture Pain Ratin Pain Location: no pain Pain Goal: Remain pain free Pain Plan: see a/p Tomorrow's Labs & Rationales: none if discharge. Consulting Request: Consulting Specialty: Gastroenterology Discharge Plan Anticipated Discharge (Day): today
--- NOTE | 2017-01-28 09:06 | RADIOLOGY REPORT ---
EXAMINATION: XR CHEST CLINICAL INFORMATION: New onset hypoxia with history of permanent tracheostomy. Aspiration pneumonia. COMPARISON: Chest x-ray 01/26/2017. TECHNIQUE: PA and lateral views of the chest were obtained. FINDINGS: The study redemonstrates the tracheostomy with the tip approximately 5 cm above the gast[place], unchanged. There is slight asymmetry of the volume of the lungs, smaller on the left which appears stable. There is apical pleural thickening on the left. There are patchy interstitial changes in the lower zones bilaterally, less dense on the left compared to the prior study. There are no new focal areas of consolidation. The cardiac silhouette is at the upper limits of normal. The aortic arch is unfolded and the descending aorta is tortuous and ectatic. There appears to be mild prominence of the central pulmonary vasculature, unchanged. There is a levoscoliosis in the thoracic spine. The study redemonstrates the sequelae of trauma and degenerative changes of the bilateral acromioclavicular and shoulder joints. IMPRESSION: 1. There has been no interval change in the position of the tracheostomy tube. 2. There is stable prominence of the cardiac silhouette. 3. There are increased interstitial markings and mild prominence of the central pulmonary vasculature, may be consistent with pulmonary edematous changes. These may be slightly decreased compared to the prior study. No definite focal consolidation is seen.
[2017-01-28 09:09] LABS: ABSOLUTE BASOPHIL COUNT 0 /CUMM (0.0-0.2); ABSOLUTE EOSINOPHIL COUNT 0 /CUMM (0.0-0.7); ABSOLUTE GRANULOCYTE CT 12.2 /CUMM (1.4-6.5); ABSOLUTE LYMPH COUNT 0.5 /CUMM (1.2-3.4); ABSOLUTE MONOCYTE COUNT 0.8 /CUMM (0.10-0.60); BASOPHIL % 0 % (0.0-2.0); EOSINOPHIL % 0.3 % (0-5); GRANULOCYTE % 90.1 % (42.2-75.2); HEMATOCRIT 38.2 % (42-52); MEAN CORPUSCULAR HGB 29.4 PG (27.0-31.0); MEAN CORPUSCULAR HGB CONC 33.1 G/DL (33.0-37.0); MEAN CORPUSCULAR VOLUME 88.7 FL (80.0-94.0); PLATELET COUNT 211 /CUMM (130-400); RBC DISTRIBUTION WIDTH 13.9 % (11.5-14.5); WHITE BLOOD CELL COUNT 13.5 /CUMM (4.8-10.8)
--- NOTE | 2017-01-28 11:29 | Patient Discharge Instructions ---
Discharge Instructions General Discharge Information You were seen/treated for: Esophageal stricture Watch for these problems: If you are unable to swallow solids or liquids, please seek medical care. Special Instructions: Please follow up with GI as an outpatient for further esophageal balloon dilation. Please follow-up with your PCP in one week. Please take all medications as directed. Diet Continue normal diet: No Recommended Diet: soft diet, thin liquids Activity Full Activity/No Limits: Yes Acute Coronary Syndrome Inclusion Criteria At DC or during hospital stay patient has or had the following: ACS DIAGNOSIS No Discharge Core Measures Meds if any: Prescribed or Continued at Discharge Meds if any: NOT Prescribed or Continued at Discharge Congestive Heart Failure Inclusion Criteria At DC or during hospital stay patient has or had the following: CHF DIAGNOSIS No Discharge Core Measures Meds if any: Prescribed or Continued at Discharge Meds if any: NOT Prescribed or Continued at Discharge Cerebrovascular accident Inclusion Criteria At DC or during hospital stay patient has or had the following: CVA/TIA Diagnosis No Discharge Core Measures Meds if any: Prescribed or Continued at Discharge Meds if any: NOT Prescribed or Continued at Discharge Venous thromboembolism Inclusion Criteria VTE Diagnosis No VTE Type NONE VTE Confirmed by (Test) NONE Discharge Core Measures - Per Current guidelines, there needs to be overlap - treatment for the first 5 days of Warfarin therapy. - If discharged on Warfarin prior to 5 days of - overlap therapy, the patient will need to be - assessed for post discharge needs including - *Post discharge parental anticoagulation - *Warfarin and/or parental anticoagulation education - *Follow up date to check INR post discharge At least 5 days overlap therapy as Inpatient No Meds if any: Prescribed or Continued at Discharge Note: Overlap Therapy is Warfarin and Anticoagulant Meds if any: NOT Prescribed or Continued at Discharge
[2017-01-28 13:18] VITALS: BP 104/60
== END 2017-01-28 13:33 ==
LOC: ERH 00:20 → ERHI 03:47 → 2NB 03:47 → ENRESERV 05:54 → 2NB 06:05 → ENPENDDIS 01-28 10:02 → 2NB 01-28 13:33
PROVIDERS: Internal Medicine; Pediatrics; ADMIT Internal Medicine
DX: R13.19 Other dysphagia (principal); K22.2 Esophageal obstruction; Y84.2 Radiological procedure and radiotherapy as the cause of abnormal reaction of the patient, or of later complication, without mention of misadventure at the time of the procedure; K29.80 Duodenitis without bleeding; Z85.89 Personal history of malignant neoplasm of other organs and systems; I50.9 Heart failure, unspecified; I95.9 Hypotension, unspecified
CPT/HCPCS: 1328; 1342; 1530; 1748; 36415; 82436; 92526-GN; 92610-GN; 93005; 93010; 96372; 96374; 96376; G0378; G8996-GN; G8997-GN; G8998-GN; J1650; J3490; J7042